=== PATIENT | male | born 1955 | race Caucasian/White ===

== ENCOUNTER 2021-04-16 18:30 | Emergency (ER) | payer MEDICARE ==
[~2021-04-16 18:30] MED LIST: PROTONIX 40 MG40 M1 PO
[2021-04-16 20:14] LABS: HEMOGLOBIN 15.1 gm/dl (14.0-17.5); RED BLOOD COUNT 5.33 M/UL (4.20-5.50); WHITE BLOOD COUNT 6.2 K/UL (4.5-11.0)
[2021-04-16 20:34] LABS: BUN/CREATININE RATIO 14 (0-10)
[2021-04-17] MEDS ORDERED: ANTIVERT 12.512.5 MG PO (00:41)
== END 2021-04-17 00:55 | disposition home or self-care (01) ==
LOC: ER1 18:30
PROVIDERS: Nurse Practitioner; Student in an Organized Health Care Education/Training Program
DX: R42 Dizziness and giddiness (principal); I10 Essential (primary) hypertension; E11.9 Type 2 diabetes mellitus without complications; J44.9 Chronic obstructive pulmonary disease, unspecified; Z79.84 Long term (current) use of oral hypoglycemic drugs; Z79.82 Long term (current) use of aspirin; Z79.899 Other long term (current) drug therapy
CPT/HCPCS: 70450; 71046; 73130; 80053; 80307; 81001; 82550; 82553; 83605; 83690; 83735; 83874; 83880; 84100; 84439; 84443; 84484; 85025; 93005; 99284; G0480

== ENCOUNTER 2021-07-07 15:04 | Observation (INO) | payer MEDICARE ==
[~2021-07-07] VITALS: Ht 180.3 cm; Wt 109.3 kg
[~2021-07-07 15:04] MED LIST changes: +ANTIVERT 12.512.5 MG PO
[2021-07-07 16:41] LABS: HEMOGLOBIN 15.1 gm/dl (14.0-17.5); RED BLOOD COUNT 5.51 M/UL (4.20-5.50); WHITE BLOOD COUNT 7.2 K/UL (4.5-11.0)
[2021-07-07 17:02] LABS: BUN/CREATININE RATIO 17 (0-10)
[2021-07-08 03:48] LABS: HEMOGLOBIN 13.8 gm/dl (14.0-17.5); RED BLOOD COUNT 5.16 M/UL (4.20-5.50); WHITE BLOOD COUNT 6.5 K/UL (4.5-11.0)
[2021-07-08 04:04] LABS: BUN/CREATININE RATIO 16 (0-10)
[2021-07-08] MEDS ORDERED: LOVASTATIN20 MG PO (11:49)
[2021-07-08] MEDS ORDERED: ASPIRIN81 MG PO (11:49)
[2021-07-08] MEDS ORDERED: ZYLOPRIM 100 M100 MG PO (11:49)
[2021-07-08] MEDS ORDERED: PROTONIX 40 MG40 M1 PO (11:50)
[2021-07-08] MEDS ORDERED: CITALOPRAM HBR20 MG PO (11:50)
[2021-07-08] MEDS ORDERED: METFORMIN HCL500 MG PO (11:51)
== END 2021-07-09 16:44 | disposition home or self-care (01) ==
LOC: ER1 15:04 → CDU 21:22 → M/S 07-08 13:56
PROVIDERS: Physician Assistant; ADMIT Internal Medicine
DX: R55 Syncope and collapse (principal); S32.010A Wedge compression fracture of first lumbar vertebra, initial encounter for closed fracture; R94.31 Abnormal electrocardiogram [ECG] [EKG]; R32 Unspecified urinary incontinence; I65.23 Occlusion and stenosis of bilateral carotid arteries; R20.0 Anesthesia of skin; E11.40 Type 2 diabetes mellitus with diabetic neuropathy, unspecified; E78.5 Hyperlipidemia, unspecified; I10 Essential (primary) hypertension; J44.9 Chronic obstructive pulmonary disease, unspecified; Z79.82 Long term (current) use of aspirin; Z79.84 Long term (current) use of oral hypoglycemic drugs; Z79.899 Other long term (current) drug therapy; Z20.822 Contact with and (suspected) exposure to COVID-19; W19.XXXA Unspecified fall, initial encounter
CPT/HCPCS: ECHO; 71045; 72131; 72170; 73501; 80048; 80053; 82550; 82553; 82962; 83874; 84484; 85025; 93005; 93270; 93306; 93880; 99284; G0103; G0378; U0002